=== PATIENT | male | born 1935 | race African-American/Black ===

== ENCOUNTER 2019-05-04 16:09 | Emergency (ER) | payer SELFPAY ==
[~2019-05-04] VITALS: Ht 170.2 cm; Wt 79.0 kg
--- NOTE | 2019-05-04 16:59 | NUR ---
no coughing/bleeding noted. awaiting md, call gao in reach, fam at bedside. denies cp/sob/dizziness.
--- NOTE | 2019-05-04 17:50 | NUR ---
DR STEWART IN ROOM FOR EVAL, WILL ADDRESS BP.
--- NOTE | 2019-05-04 18:00 | NUR ---
meds per chetan hydralazine req from pharm. no change in pt condition, call gao in reach. as
[2019-05-04 18:04] LABS: ANION GAP 8 mmol/L (5-15); CALCIUM 8.6 mg/dL (8.5-10.1); CHLORIDE 106 mmol/L (98-107); CREATININE 2.09 mg/dL (0.7-1.3); INTERNATIONAL NORMALIZED RATIO 1.22 (0.93-1.1); PROTHROMBIN TIME 12.7 Seconds (9.6-11.5)
[2019-05-04 19:01] LABS: MEAN CORPUSCULAR HEMOGLOBIN 16.1 pg (27.5-34.5); MEAN PLATELET VOLUME 12.1 fL (7.4-10.4); PLATELET COUNT 426 x10^3/uL (130-400); RED BLOOD COUNT 7.97 x10^6/uL (4.38-5.82)
[2019-05-04 19:04] LABS: MD YES
[2019-05-04 19:05] LABS: MEAN CORPUSCULAR HGB CONC 28.3 g/dL (33.2-36.2); RED CELL DISTRIBUTION WIDTH 28.5 % (9.4-14.8)
[2019-05-04 19:07] LABS: BAND#(MANUAL) 1.65 x10^3/uL; BANDS%(MANUAL) 5 % (0-7); BASOS#(MANUAL) 0.66 x10^3/uL (0-0.1); BASOS% (MANUAL) 2 % (0-1); LYMPH#(MANUAL) 4.94 x10^3/uL (1-3.4); LYMPHS% (MANUAL) 15 % (22-44); METAMYELOCYTES# (MANUAL) 1.65 x10^3/uL (0-0); METAMYELOCYTES% (MANUAL) 5 % (0-1); MONOS#(MANUAL) 5.92 x10^3/uL (0.3-2.7); MONOS% (MANUAL) 18 % (2-9); MYELOCYTES# (MANUAL) 0.33 x10^3/uL (0-0); MYELOCYTES% (MANUAL) 1 % (0-0); NRBC % (MANUAL) 1 % (0-1); SEG#(MANUAL) 17.77 x10^3/uL (1.8-6.8); SEGS% (MANUAL) 54 % (42-75)
[2019-05-04 19:08] LABS: ANISOCYTOSIS 2+; MICROCYTOSIS 2+
[2019-05-04 19:09] LABS: HYPOCHROMIA 2+; POLYCHROMASIA 1+
[2019-05-04 19:10] LABS: GIANT PLATELETS 2+; LARGE PLATELETS 2+
[2019-05-04 19:11] LABS: TARGET CELLS 1+
[2019-05-04 19:12] LABS: <PLATELET ESTIMATE> INCREASED
--- NOTE | 2019-05-04 20:41 | NUR ---
pt awaiting ct results. no complaints at this time, asking to go home. as
--- NOTE | 2019-05-04 21:26 | NUR ---
dr sy in room to speak w/ pt and family. pt asking to go home. as
[2019-05-04] MEDS ORDERED: DOXYCYCLINE 100MG TABLET PO ONE (21:30)
[2019-05-04] MEDS ORDERED: DOXYCYCLINE 100MG TABLET ONE (21:46)
[2019-05-04 21:51] VITALS: BP 178/88
== END 2019-05-04 21:56 | disposition home or self-care (01) ==
LOC: ED 21:45
DX: J15.9 Unspecified bacterial pneumonia (principal); I10 Essential (primary) hypertension; N18.9 Chronic kidney disease, unspecified; D72.829 Elevated white blood cell count, unspecified; J98.4 Other disorders of lung; R04.2 Hemoptysis; Z87.891 Personal history of nicotine dependence
CPT/HCPCS: 36415; 71045; 71250; 80048; 85025; 85610; 85730; 99284